=== PATIENT | female | born 1985 | race Caucasian/White ===

== ENCOUNTER 2016-04-29 13:18 | Emergency (ER) | payer SELFPAY | END 2016-04-29 16:00 | disposition home or self-care (01) | LOC: D.ER 13:18 | DX: M62.838 Other muscle spasm (principal); F17.200 Nicotine dependence, unspecified, uncomplicated ==

== ENCOUNTER 2017-05-22 08:51 | Emergency (ER) | payer BC | END 2017-05-22 12:27 | disposition home or self-care (01) | LOC: D.ER 08:51 | DX: S01.81XA Laceration without foreign body of other part of head, initial encounter (principal); V19.9XXA Pedal cyclist (driver) (passenger) injured in unspecified traffic accident, initial encounter; Y93.89 Activity, other specified; Y92.410 Unspecified street and highway as the place of occurrence of the external cause; S50.02XA Contusion of left elbow, initial encounter; M54.2 Cervicalgia; F17.200 Nicotine dependence, unspecified, uncomplicated ==